=== PATIENT | female | born 1980 | race Hispanic/Latino ===

== ENCOUNTER 2018-01-11 09:51 | Outpatient (CLI) | payer BC | END 2018-01-11 09:52 | disposition home or self-care (01) | LOC: BICRAD 09:51 | PROVIDERS: ATTEND Chiropractor | DX: M54.5 Low back pain (principal); M53.84 Other specified dorsopathies, thoracic region; M53.86 Other specified dorsopathies, lumbar region | CPT/HCPCS: 72110 ==

== ENCOUNTER 2018-05-12 09:00 | Outpatient (CLI) | payer BC | END 2018-05-12 09:01 | disposition home or self-care (01) | LOC: DTY/OP 09:00 | PROVIDERS: ATTEND Surgery | DX: E66.01 Morbid (severe) obesity due to excess calories (principal) | CPT/HCPCS: 97802 ==

== ENCOUNTER 2018-06-25 00:42 | Emergency (ER) | payer BC ==
[2018-06-25 12:36] LABS: Clarity Clear (Clear); Leukocyte Negative (Negative); Specific Gravity, Urine 1.007 (1.002-1.036)
[2018-06-25 12:37] LABS: Bilirubin Small (Negative); Blood, Urine Large (Negative); Glucose, Urine (Dipstick) Negative (Negative); Nitrite Negative (Negative); Protein, Urine (Dipstick) Negative (Neg-Trace); Urobilinogen 0.2 mg/dL (0.2-1.0)
[2018-06-25 12:38] LABS: Hyaline Casts/LPF NONE SEEN LPF (0-3 Hyaline); Squamous Epithelial 0-3 HPF (0-3); WBC/HPF 0-3 HPF (0-3)
[2018-06-25 12:39] LABS: Pregnancy Test - Urine (BHCG) Negative (Negative); Pregu Control Background? CLEAR/WHITE (CLR/WHITE); Pregu Control Bar Appear? YES (CONTROL BAR); Specific Gravity 1.007 (1.002-1.036)
[2018-06-25 15:37] LABS: Anion Gap 15 mmol/L (10-20); BUN (Urea Nitrogen) 6 mg/dL (7.0-18.7); Bilirubin, Total 0.8 mg/dL (0.2-1.2); Calc. Creatinine Clearance 0 mL/min (70-130); Calcium 8.5 mg/dL (7.8-10.44); Carbon Dioxide 20 mmol/L (22-29); Chloride 104 mmol/L (98-107); Estimated GFR-MDRD Greater than 90; Glucose 69 mg/dL (70-105); Potassium 3.4 mmol/L (3.5-5.1); Protein, Total 7.6 g/dL (6.0-8.3); Sodium 136 mmol/L (136-145)
[2018-06-25 15:38] LABS: ALT (SGPT) 89 U/L (8-55); AST (SGOT) 44 U/L (5-34); Alkaline Phosphatase 71 U/L (40-150); Globulin 3.6 g/dL (2.4-3.5)
[2018-06-25 16:40] LABS: %Basophils 0.6 % (0.0-1.0); %Eosinophils 0.7 % (0.0-10.0); %Lymphocytes 30.5 % (21.0-51.0); %Monocytes 6.4 % (0.0-10.0); %Neutrophils 61.8 % (42.0-75.0); Hemoglobin 12.7 g/dL (12.0-16.0); Mean Corpuscular HGB CONC 32.1 g/dL (32.0-36.0); Mean Corpuscular Hemoglobin 28.2 pg (27.0-31.0); Mean Corpuscular Volume 87.9 fL (78.0-98.0); Platelet Count 246 thou/uL (130-400); RBC Distribution Width 12.6 % (11.5-14.5); White Blood Cell (WBC) Count 7.6 thou/uL (4.8-10.8)
[2018-06-25 16:41] LABS: #Eosinphils 0.1 thou/uL (0.0-0.7); #Lymphocytes 2.3 thou/uL (1.20-3.40); #Monocytes 0.5 thou/uL (0.11-0.59); #Neutrophils 4.7 thou/uL (1.40-6.50)
== END 2018-06-25 04:18 | disposition home or self-care (01) ==
LOC: ERS 00:42
DX: R31.9 Hematuria, unspecified (principal); E78.5 Hyperlipidemia, unspecified; E78.00 Pure hypercholesterolemia, unspecified
CPT/HCPCS: 80053; 81003; 81015; 81025; 85025; 99283

== ENCOUNTER 2018-06-26 02:12 | Emergency (ER) | payer BC ==
[2018-06-26 03:02] LABS: Pregnancy Test - Urine (BHCG) Negative (Negative); Pregu Control Background? CLEAR/WHITE (CLR/WHITE); Pregu Control Bar Appear? YES (CONTROL BAR)
[2018-06-26 03:03] LABS: Bilirubin Moderate (Negative); Blood, Urine Trace (Negative); Clarity CLEAR (Clear); Glucose, Urine (Dipstick) Negative (Negative); Leukocyte Negative (Negative); Nitrite Negative (Negative); Protein, Urine (Dipstick) Negative (Neg-Trace); Specific Gravity, Urine 1.015 (1.002-1.036)
[2018-06-26 03:04] LABS: Specific Gravity 1.015 (1.002-1.036)
[2018-06-26 03:05] LABS: Bacteria/HPF None Seen HPF (None Seen); Hyaline Casts/LPF 0-3 HYALINE CAST LPF (0-3 Hyaline); Pathc Cast-AUWi Flag 0.72 (0-2.49); RBC/HPF 0-3 HPF (0-3); Squamous Epithelial 0-3 HPF (0-3); WBC/HPF 0-3 HPF (0-3)
[2018-06-26 03:15] LABS: Renal Epithelial None Seen HPF (0-3); Transitional Epithelial 0-3 HPF (0-3)
== END 2018-06-26 03:40 | disposition home or self-care (01) ==
LOC: ERS 02:12
DX: R31.9 Hematuria, unspecified (principal); E78.5 Hyperlipidemia, unspecified; Z79.899 Other long term (current) drug therapy
CPT/HCPCS: 51701; 81003; 81025; 87086; A4353

== ENCOUNTER 2018-07-19 16:45 | Emergency (ER) | payer BC | END 2018-07-19 16:55 | disposition left against medical advice (07) | LOC: ERS 16:45 | DX: Z53.21 Procedure and treatment not carried out due to patient leaving prior to being seen by health care provider (principal) ==

== ENCOUNTER 2018-07-23 18:42 | Emergency (ER) | payer BC ==
[2018-07-23 19:54] LABS: #Basophils 0.1 thou/uL (0.0-0.2); #Eosinphils 0.1 thou/uL (0.0-0.7); #Lymphocytes 1.9 thou/uL (1.20-3.40); #Monocytes 0.4 thou/uL (0.11-0.59); #Neutrophils 2.8 thou/uL (1.40-6.50); %Basophils 1.7 % (0.0-1.0); %Eosinophils 1.7 % (0.0-10.0); %Lymphocytes 35.9 % (21.0-51.0); %Monocytes 6.9 % (0.0-10.0); %Neutrophils 53.9 % (42.0-75.0); Hemoglobin 14.1 g/dL (12.0-16.0); Mean Corpuscular HGB CONC 33.8 g/dL (32.0-36.0); Mean Corpuscular Hemoglobin 29.5 pg (27.0-31.0); Mean Corpuscular Volume 87.3 fL (78.0-98.0); Mean Platelet Volume 8.1 fL (7.4-10.4); Platelet Count 175 thou/uL (130-400); RBC Distribution Width 13.6 % (11.5-14.5); Red Blood Cell (RBC) Count 4.78 mill/uL (4.20-5.40); White Blood Cell (WBC) Count 5.3 thou/uL (4.8-10.8)
[2018-07-23 20:14] LABS: ALT (SGPT) 58 U/L (8-55); AST (SGOT) 40 U/L (5-34); Albumin 4.2 g/dL (3.5-5.0); Alkaline Phosphatase 61 U/L (40-150); Anion Gap 17 mmol/L (10-20); BUN (Urea Nitrogen) 8 mg/dL (7.0-18.7); Bilirubin, Total 0.5 mg/dL (0.2-1.2); Calc. Creatinine Clearance 0 mL/min (70-130); Calcium 9.2 mg/dL (7.8-10.44); Carbon Dioxide 22 mmol/L (22-29); Chloride 102 mmol/L (98-107); Estimated GFR-MDRD Greater than 90; Globulin 3.7 g/dL (2.4-3.5); Glucose 69 mg/dL (70-105); Potassium 3.6 mmol/L (3.5-5.1); Protein, Total 7.9 g/dL (6.0-8.3); Sodium 137 mmol/L (136-145)
[2018-07-23 20:19] LABS: Bilirubin Negative (Negative); Glucose, Urine (Dipstick) Negative (Negative); Nitrite Negative (Negative); Protein, Urine (Dipstick) Negative (Neg-Trace)
[2018-07-23 21:22] LABS: Clarity Hazy (Clear)
[2018-07-23 21:23] LABS: Leukocyte Small (Negative)
[2018-07-23 21:24] LABS: Bacteria/HPF Rare-Few HPF (None Seen); Blood, Urine Small (Negative); Hyaline Casts/LPF 0-3 HYALINE CAST LPF (0-3 Hyaline)
== END 2018-07-23 21:41 | disposition home or self-care (01) ==
LOC: ERS 18:42
DX: E16.2 Hypoglycemia, unspecified (principal); E78.5 Hyperlipidemia, unspecified; Z79.899 Other long term (current) drug therapy
CPT/HCPCS: 36415; 80053; 81003; 81015; 85025; 99284

== ENCOUNTER 2018-12-21 15:32 | Emergency (ER) | payer BC ==
[2018-12-21 16:43] LABS: Bilirubin Negative (Negative); Blood, Urine Negative (Negative); Clarity CLOUDY (Clear); Glucose, Urine (Dipstick) Negative (Negative); Leukocyte Small (Negative); Nitrite Negative (Negative); Protein, Urine (Dipstick) Trace mg/dL (Neg-Trace); Specific Gravity, Urine 1.036 (1.002-1.036)
[2018-12-21 16:45] LABS: Pregnancy Test - Urine (BHCG) Negative (Negative); Pregu Control Background? CLEAR/WHITE (CLR/WHITE); Pregu Control Bar Appear? YES (CONTROL BAR); Specific Gravity 1.036 (1.002-1.036)
[2018-12-21 16:46] LABS: Bacteria/HPF 1+ HPF (None Seen)
[2018-12-21 16:47] LABS: #Basophils 0.1 thou/uL (0.0-0.2); #Eosinphils 0.1 thou/uL (0.0-0.7); #Monocytes 0.3 thou/uL (0.11-0.59); #Neutrophils 3.2 thou/uL (1.40-6.50); %Basophils 1.5 % (0.0-1.0); %Eosinophils 1.5 % (0.0-10.0); %Lymphocytes 35.7 % (21.0-51.0); %Monocytes 5.6 % (0.0-10.0); %Neutrophils 55.7 % (42.0-75.0); Hemoglobin 12.8 g/dL (12.0-16.0); Mean Corpuscular HGB CONC 34.1 g/dL (32.0-36.0); Mean Corpuscular Hemoglobin 29.5 pg (27.0-31.0); Mean Corpuscular Volume 86.4 fL (78.0-98.0); Platelet Count 283 thou/uL (130-400); RBC Distribution Width 11.7 % (11.5-14.5); Red Blood Cell (RBC) Count 4.34 mill/uL (4.20-5.40); White Blood Cell (WBC) Count 5.7 thou/uL (4.8-10.8)
[2018-12-21 16:52] LABS: Pathc Cast-AUWi Flag 2.72 (0-2.49); Yeast-AUWi Flag 125.9 (0-25.0)
[2018-12-21 17:03] LABS: Hyaline Casts/LPF 0-3 HYALINE CAST LPF (0-3 Hyaline); Other Casts/LPF None Seen LPF (0-3 Hyaline); RBC/HPF 0-3 HPF (0-3)
[2018-12-21 17:04] LABS: Yeast-All Forms None Seen HPF (None Seen)
[2018-12-21 17:07] LABS: ALT (SGPT) 14 U/L (8-55); AST (SGOT) 16 U/L (5-34); Albumin 4.3 g/dL (3.5-5.0); Alkaline Phosphatase 70 U/L (40-150); Anion Gap 12 mmol/L (10-20); BUN (Urea Nitrogen) 13 mg/dL (7.0-18.7); Bilirubin, Total 0.4 mg/dL (0.2-1.2); Calc. Creatinine Clearance 0 mL/min (70-130); Carbon Dioxide 27 mmol/L (22-29); Chloride 104 mmol/L (98-107); Estimated GFR-MDRD Greater than 90; Glucose 80 mg/dL (70-105); Potassium 3.6 mmol/L (3.5-5.1); Protein, Total 7.3 g/dL (6.0-8.3); Sodium 139 mmol/L (136-145)
[2018-12-21] MEDS ORDERED: Metoclopramide HCl 10 MG/2 ML VIAL ONE (18:48)
[2018-12-21] MEDS ORDERED: Meclizine HCl 25 MG TAB ONE (18:48)
--- NOTE | 2018-12-25 15:33 | EKG ---
Test Reason : Blood Pressure : / mmHG Vent. Rate : 063 BPM Atrial Rate : 063 BPM P-R Int : 140 ms QRS Dur : 080 ms QT Int : 386 ms P-R-T Axes : 032 -08 017 degrees QTc Int : 395 ms Normal sinus rhythm Confirmed by CHARLIE ORTIZ ([id number]), editorial clerk TI POTTER ([id number]) on 12/25/2018 3:33:20 PM Referred By: Confirmed By:CHARLIE ORTIZ
== END 2018-12-21 22:02 | disposition home or self-care (01) ==
LOC: ERS 15:32
DX: H81.399 Other peripheral vertigo, unspecified ear (principal); E78.5 Hyperlipidemia, unspecified
CPT/HCPCS: 36415; 36416; 80053; 81003; 81015; 81025; 84484; 85025; 93005; 96365; J2765

== ENCOUNTER 2019-06-07 17:41 | Emergency (ER) | payer BC ==
[2019-06-07 18:19] LABS: #Eosinphils 0.1 thou/uL (0.0-0.7); #Lymphocytes 2.5 thou/uL (1.20-3.40); #Monocytes 0.4 thou/uL (0.11-0.59); #Neutrophils 3.6 thou/uL (1.40-6.50); %Basophils 0.5 % (0.0-1.0); %Eosinophils 1.3 % (0.0-10.0); %Lymphocytes 37.4 % (21.0-51.0); %Monocytes 5.9 % (0.0-10.0); %Neutrophils 54.9 % (42.0-75.0); Hemoglobin 13.6 g/dL (12.0-16.0); Mean Corpuscular HGB CONC 34.4 g/dL (32.0-36.0); Mean Corpuscular Hemoglobin 29.7 pg (27.0-31.0); Mean Corpuscular Volume 86.2 fL (78.0-98.0); Mean Platelet Volume 7.1 fL (7.4-10.4); Platelet Count 246 thou/uL (130-400); RBC Distribution Width 11.9 % (11.5-14.5); Red Blood Cell (RBC) Count 4.58 mill/uL (4.20-5.40); White Blood Cell (WBC) Count 6.6 thou/uL (4.8-10.8)
[2019-06-07 18:28] LABS: BHCG - Serum Negative (NEGATIVE); Pregs Control Background? CLEAR/WHITE (CLR/WHITE); Pregs Control Bar Appear? YES (CONTROL BAR)
[2019-06-07] MEDS ORDERED: Cyanocobalamin 1000 MCG/ML VIAL IM SCH (18:30)
[2019-06-07] MEDS ORDERED: Multivitamins, Adult 10 ML, Thiamine HCl 100 MG, Folic Acid 1 MG in Dextrose 5 %-0.45 %... IV ONE (18:30)
[2019-06-07 18:38] LABS: ALT (SGPT) 14 U/L (8-55); AST (SGOT) 17 U/L (5-34); Albumin 4.8 g/dL (3.5-5.0); Alkaline Phosphatase 62 U/L (40-110); Anion Gap 13 mmol/L (10-20); BUN (Urea Nitrogen) 13 mg/dL (7.0-18.7); Bilirubin, Total 0.4 mg/dL (0.2-1.2); Calc. Creatinine Clearance 0 mL/min (70-130); Calcium 9.7 mg/dL (7.8-10.44); Carbon Dioxide 25 mmol/L (22-29); Chloride 102 mmol/L (98-107); Estimated GFR-MDRD Greater than 90; Globulin 3.7 g/dL (2.4-3.5); Glucose 108 mg/dL (70-105); Potassium 3.4 mmol/L (3.5-5.1); Protein, Total 8.5 g/dL (6.0-8.3); Sodium 137 mmol/L (136-145)
[2019-06-07 19:01] LABS: Vitamin B12 518 pg/mL (211-911)
[2019-06-07] MEDS ORDERED: Potassium Chloride 20 MEQ TAB ONE (19:07)
[2019-06-07 19:47] LABS: Bilirubin Negative (Negative); Blood, Urine Negative (Negative); Clarity Clear (Clear); Glucose, Urine (Dipstick) Normal (Negative); Leukocyte Negative Leu/uL (Negative); Nitrite Negative (Negative); Protein, Urine (Dipstick) 10 mg/dL (Neg-Trace)
--- NOTE | 2019-06-07 20:00 | ULT ---
RIGHT LOWER EXTREMITY VENOUS ULTRASOUND: 06/07/19 HISTORY: Right lower extremity pain. TECHNIQUE: Multiplanar martinez scale and color Doppler images were obtained in a right lower extremity venous ultra sound. Spectral analysis of the Doppler waveforms were performed. FINDINGS: The right common femoral vein, profunda femoral vein, superficial femoral vein, popliteal vein, are n ormal in appearance without visible thrombus. These vessels demonstrate normal compression, flow and augmentation. The posterior tibial vein and greater saphenous vein are also patent. IMPRESSION: No evidence of DVT. POS: [facility]
== END 2019-06-07 19:18 | disposition home or self-care (01) ==
LOC: ERS 17:41
DX: M54.31 Sciatica, right side (principal); R53.83 Other fatigue; E78.5 Hyperlipidemia, unspecified; E78.00 Pure hypercholesterolemia, unspecified
CPT/HCPCS: 80053; 81003; 82607; 84703; 85025; 96365; 96366; 96372; J3411; J3420; J7042

== ENCOUNTER 2019-07-29 12:01 | Outpatient (CLI) | payer BC ==
--- NOTE | 2019-07-29 14:00 | RAD ---
FIVE VIEWS LUMBAR SPINE: HISTORY: Low back pain over 4 months. The patient also complains of right hip pain. COMPARISON: None available. FINDINGS: There are 5 byj-gig-pmpoegf lumbar-type vertebral bodies. Vertebral body heights are within normal l imits. There is mild narrowing of the L5-S1 intervertebral disk space. No fracture or subluxation i s seen involving the lumbar spine. Surgical overlie the upper quadrants bilaterally. IMPRESSION: Mild degenerative changes at the lumbosacral junction. No fracture or subluxation is seen involving the lumbar spine. POS: [facility]
== END 2019-07-29 12:02 | disposition home or self-care (01) ==
LOC: BICRAD 12:01
PROVIDERS: ATTEND Chiropractor
DX: M54.5 Low back pain (principal); M53.86 Other specified dorsopathies, lumbar region; M53.84 Other specified dorsopathies, thoracic region; M79.10 Myalgia, unspecified site; M47.816 Spondylosis without myelopathy or radiculopathy, lumbar region
CPT/HCPCS: 72110

== ENCOUNTER 2020-05-22 20:45 | Observation (INO) | payer BC, OTHER ==
[2020-05-22] MEDS ORDERED: Meclizine HCl 25 MG TAB ONE (21:33)
[2020-05-22 21:38] LABS: #Eosinphils 0.1 thou/uL (0.0-0.7); #Lymphocytes 2.1 thou/uL (1.20-3.40); #Monocytes 0.4 thou/uL (0.11-0.59); #Neutrophils 3.3 thou/uL (1.40-6.50); %Basophils 0.7 % (0.0-1.0); %Lymphocytes 35.6 % (21.0-51.0); %Neutrophils 54.8 % (42.0-75.0); Hemoglobin 9.9 g/dL (12.0-16.0); Mean Corpuscular HGB CONC 33.1 g/dL (32.0-36.0); Mean Corpuscular Hemoglobin 24.8 pg (27.0-31.0); Mean Corpuscular Volume 74.9 fL (78.0-98.0); Mean Platelet Volume 7.8 fL (7.4-10.4); Platelet Count 315 thou/uL (130-400); Red Blood Cell (RBC) Count 3.98 mill/uL (4.20-5.40)
[2020-05-22 21:52] LABS: Bacteria/HPF None Seen HPF (None Seen); Bilirubin Negative (Negative); Blood, Urine Negative (Negative); Clarity Clear (Clear); Glucose, Urine (Dipstick) Normal (Negative); Ketone, Urine Negative (Negative); Leukocyte 25 Leu/uL (Negative); Mucous/LPF Rare LPF (<2+); Nitrite Negative (Negative); Protein, Urine (Dipstick) 10 mg/dL (Neg-Trace); RBC/HPF 0-3 HPF (0-3); Specific Gravity, Urine 1.032 (1.002-1.036); Squamous Epithelial 0-3 HPF (0-3); Urobilinogen Normal mg/dL (Less than 2); WBC/HPF 0-3 HPF (0-3); pH, Urine 5.5 (5.0-9.0)
[2020-05-22 21:53] LABS: Pregnancy Test - Urine (BHCG) Negative (Negative); Pregu Control Background? CLEAR/WHITE (CLR/WHITE); Pregu Control Bar Appear? YES (CONTROL BAR); Specific Gravity 1.032 (1.002-1.036)
[2020-05-22 21:58] LABS: ALT (SGPT) 8 U/L (8-55); AST (SGOT) 15 U/L (5-34); Albumin 4.1 g/dL (3.5-5.0); Alkaline Phosphatase 54 U/L (40-110); Anion Gap 15 mmol/L (10-20); BUN (Urea Nitrogen) 11 mg/dL (7.0-18.7); Bilirubin, Total 0.3 mg/dL (0.2-1.2); Calc. Creatinine Clearance 0 mL/min (70-130); Calcium 8.4 mg/dL (7.8-10.44); Carbon Dioxide 22 mmol/L (22-29); Chloride 105 mmol/L (98-107); Estimated GFR-MDRD Greater than 90; Globulin 3.1 g/dL (2.4-3.5); Glucose 88 mg/dL (70-105); Potassium 3.7 mmol/L (3.5-5.1); Protein, Total 7.2 g/dL (6.0-8.3); Sodium 138 mmol/L (136-145)
[2020-05-22] MEDS ORDERED: Pantoprazole 40 MG VIAL ONE (22:44)
[2020-05-23] MEDS ORDERED: Lactated Ringer's 1,000 ML IV SCH (00:45)
[2020-05-23 00:53] VITALS: BMI 27.3
[2020-05-23] MEDS ORDERED: Acetaminophen 325 MG TAB PO PRN (05:27)
[2020-05-23] MEDS ORDERED: hydrALAZINE 20 MG/ML VIAL SLOW IVP PRN (05:27)
[2020-05-23] MEDS ORDERED: Promethazine HCl 12.5 MG in Sodium Chloride 0.9% 50 ML IVPB PRN (05:27)
[2020-05-23] MEDS ORDERED: Ondansetron PF 4 MG/2 ML Vial IVP PRN (05:27)
[2020-05-23] MEDS ORDERED: Labetalol HCl 100 MG/20 ML VIAL SLOW IVP PRN (05:27)
[2020-05-23] MEDS ORDERED: Guaifenesin DM 100-10/5 ML UDCUP PO PRN (05:27)
[2020-05-23] MEDS ORDERED: cloNIDine 0.1 MG TAB PO PRN (05:27)
[2020-05-23] MEDS ORDERED: Electrolyte Replacement Protoc 1 EACH EACH FS SCH (05:30)
--- NOTE | 2020-05-23 05:34 | PDOC.HHP ---
Hospitalist HPI - History of Present Illness Dizziness History of Present Illness: Patient is a 40 year old female with PMH gastric sleeve who presents to ED for several days of dizziness. She reports about a week ago, she started being dizzy , she reports previous episodes of this that she ascribes to dehydration. Her symptoms somewhat sound like vertigo or orthostasis. She has a gastric sleeve and has had issues with hypokalemia in the past. she denies fevers, chills, nausea, vomiting, diarrhea. No visual changes, headaches, seizures. In ED, BP low (90s/60s at lowest). hemoglobin found to be 9, patient denies melena/ hematochezia/hematemesis. Menstrual period last month was normal, patient denies signficantly large volume menses. Given history of gastric sleeve, ED physician concerned about things such as ulcer or slow bleeding. Patinet admitted for GI consult in AM. Hospitalist ROS - Review of Systems Constitutional: reports: weakness, other (dizziness). denies: fever, chills, sweats, malaise Eyes: denies: pain, vision change, conjunctivae inflammation, eyelid inflammation, redness, other ENT: denies: ear pain, ear discharge, nose pain, nose discharge, nose congestion , mouth pain, mouth swelling, throat pain, throat swelling, other Respiratory: denies: cough, dry, shortness of breath, hemoptysis, SOB with excertion, pleuritic pain, sputum, wheezing, other Cardiovascular: denies: chest pain, palpitations, orthopnea, paroxysmal noc. dyspnea, edema, light headedness, other Gastrointestinal: denies: nausea, vomiting, abdominal pain, diarrhea, constipation, melena, hematochezia, other Genitourinary: denies: dysuria, frequency, incontinence, hematuria, retention, other Musculoskeletal: denies: neck pain, shoulder pain, arm pain, back pain, hand pain, leg pain, foot pain, other Skin: denies: rash, lesions, jayde, bruising, other Neurological: denies: weakness, numbness, incoordination, change in speech, confusion, seizures, other All other systems reviewed; all pertinent +/- noted in HPI/Subj - Medication Medications: reviewed, none i am aware of Hospitalist History - Past Medical History Other Medical History: HLD - Past Surgical History Other Surgical History: gastric sleeve - Family History Family History: reports: no pertinent history - Social History Alcohol: reports: None Drugs: reports: none - Exam General Appearance: NAD, awake alert Eye: PERRL, anicteric sclera ENT: normocephalic atraumatic, no oropharyngeal lesions, moist mucosa Neck: supple, symmetric, no JVD, no thyromegaly, no lymphadenopathy, no carotid bruit Heart: RRR, no murmur, no gallops, no rubs, normal peripheral pulses Respiratory: CTAB, no wheezes, no rales, no ronchi, normal chest expansion, no tachypnea, normal percussion Gastrointestinal: soft, non-tender, non-distended, normal bowel sounds, no palpable masses, no hepatomegaly, no splenomegaly, no bruit Extremities: no cyanosis, no clubbing, no edema Skin: normal turgor, no lesions, no rashes Neurological: cranial nerve grossly intact, normal sensation to touch, no weakness, no focal deficits, no new deficit Musculoskeletal: normal tone, normal strength, no muscle wasting Psychiatric: normal affect, normal behavior, A&O x 3 Hospitalist Results - Labs Result Diagrams: 05/22/20 21:10 05/22/20 21:10 Lab results: WBC 6.0 thou/uL (4.8-10.8) 05/22/20 21:10 Hgb 9.9 g/dL (12.0-16.0) L 05/22/20 21:10 Hct 29.8 % (36.0-47.0) L 05/22/20 21:10 MCV 74.9 fL (78.0-98.0) L 05/22/20 21:10 Plt Count 315 thou/uL (130-400) 05/22/20 21:10 Neutrophils % 54.8 % (42.0-75.0) 05/22/20 21:10 Sodium 138 mmol/L (136-145) 05/22/20 21:10 Potassium 3.7 mmol/L (3.5-5.1) 05/22/20 21:10 Chloride 105 mmol/L (98-107) 05/22/20 21:10 Carbon Dioxide 22 mmol/L (22-29) 05/22/20 21:10 BUN 11 mg/dL (7.0-18.7) 05/22/20 21:10 Creatinine 0.61 mg/dL (0.6-1.1) 05/22/20 21:10 Glucose 88 mg/dL (70-105) 05/22/20 21:10 Calcium 8.4 mg/dL (7.8-10.44) 05/22/20 21:10 Total Bilirubin 0.3 mg/dL (0.2-1.2) 05/22/20 21:10 AST 15 U/L (5-34) 05/22/20 21:10 ALT 8 U/L (8-55) 05/22/20 21:10 Alkaline Phosphatase 54 U/L (40-110) 05/22/20 21:10 Serum Total Protein 7.2 g/dL (6.0-8.3) 05/22/20 21:10 Albumin 4.1 g/dL (3.5-5.0) 05/22/20 21:10 Urine Ketones Negative mg/dL (Negative) 05/22/20 21:17 Urine Blood Negative (Negative) 05/22/20 21:17 Urine Nitrite Negative (Negative) 05/22/20 21:17 Ur Leukocyte Esterase 25 Abdulkadir/uL (Negative) A 05/22/20 21:17 Urine RBC 0-3 HPF (0-3) 05/22/20 21:17 Urine WBC 0-3 HPF (0-3) 05/22/20 21:17 Ur Squamous Epith Cells 0-3 HPF (0-3) 05/22/20 21:17 Urine Bacteria None Seen HPF (None Seen) 05/22/20 21:17 Additional comment: VITAL SIGNS ThuMay 23, 2020 00:21 MACEY Jackson, Stephanie BP: 92/62 MAP: 72 Pulse: 69 Time: 05/23/2020 00:21. Hospitalist H&P A/P - Plan Plan: Patient is a 40 year old female with PMH gastric sleeve who presents to ED for several days of dizziness. # anemia # dizziness # history of gastric sleeve - admit to floor - IVF - consult GI - PPI - NPO DVT ppx - SCD GI ppx
[2020-05-23] MEDS: Sodium Chloride 0.9% 1,000 ML IV SCH ×2 (06:12→15:43)
[2020-05-23 08:56] LABS: Hemoglobin 9.3 g/dL (12.0-16.0)
[2020-05-23] MEDS ORDERED: Pantoprazole 40 MG VIAL IVP SCH (09:45)
[2020-05-23 13:04] LABS: SARS-CoV-2 MS2 Positive; SARS-CoV-2 N Gene Negative; SARS-CoV-2 S Gene Negative; SARS-CoV-2 by NAA Not Detected (NotDetected); SARS-CoV-2 orf1ab Negative
[2020-05-23] MEDS ORDERED: GoLYTELY 4,000 ml Bottle PO SCH (18:45)
[2020-05-23] MEDS: Pantoprazole 40 MG VIAL IVP SCH (19:50)
--- NOTE | 2020-05-23 22:04 | CON ---
DATE OF CONSULTATION: 05/23/2020 REQUESTING PHYSICIAN: Dr. Henao. REASON FOR CONSULTATION: Anemia. HISTORY OF PRESENT ILLNESS: Radha Espinoza is a very pleasant 40-year-old woman, who was admitted to the hospital late last night with complaints of progressive dizziness and weakness over the past week and was found to have significant new microcytic anemia. She has a past history of hyperlipidemia. She had an EGD in 2014 showing only mild chronic gastritis. She had a gastric sleeve operation in June 2018 in [place], which was evidently uncomplicated. She had great weight loss after this going from 250 down to 140 pounds and weight has been stable recently, but she says that for about the past week, she has noticed progressive dizziness and weakness, as well as tiredness. Upon presentation in the ER, her systolic blood pressure was 90 with diastolic of 60 and hemoglobin was found to be 9.9. Repeat hemoglobin value was 9.3. This is a microcytic anemia with MCV 74.9. She has not received any blood transfusion, but has remained hemodynamically stable through all this. She denies any overt bleeding from anywhere. She has normal menses, which last about seven days, but are not too heavy, every month. She denies any epistaxis, gross hematuria, hematemesis, melena, or hematochezia. Bowel movements are normal and regular in appearance. She does not have any abdominal pain. She has been having some heartburn over the past few weeks, for which she will take an qnjd-tpc-dnkwecd antacid as needed, but no other gastrointestinal symptoms. She has been n.p.o. so far today. PAST MEDICAL HISTORY: Gastric sleeve operation in June 2018 in [place] and hyperlipidemia. ALLERGIES: NO KNOWN DRUG ALLERGIES. OUTPATIENT MEDICATIONS: Bvwj-jau-krwiawx antacid p.r.n. SOCIAL HISTORY: No alcohol or drug use. FAMILY HISTORY: Negative for GI malignancy. REVIEW OF SYSTEMS: Full review of systems including constitutional, head, eyes, ears, nose, throat, GI, , cardiovascular, respiratory, musculoskeletal, and neurologic systems are negative except as noted in the HPI. PHYSICAL EXAMINATION: VITAL SIGNS: Temperature 98.3, blood pressure 107/71, pulse 70, and 99% oxygen saturation on room air. GENERAL: A 40-year-old woman lying in bed comfortably, in no distress. SKIN: She is a bit pale. No jaundice. No rashes were palpable. EYES: No scleral icterus. Extraocular movements intact. ENT: Mucous membranes moist. No oral lesions. LYMPH: No submandibular or supraclavicular lymphadenopathy. THYROID: Nontender to palpation. HEART: Regular rate and rhythm. LUNGS: Clear to auscultation bilaterally. ABDOMEN: Bowel sounds present. Soft and nontender to palpation throughout. EXTREMITIES: No peripheral edema. VESSELS: Radial pulses 2+ bilaterally. NEUROLOGIC: Cranial nerves 2 through 12 intact bilaterally. No focal deficits. LABORATORY STUDIES: Hemoglobin 9.9, down to 9.3; hemoglobin was 13.6 one year ago in May 2019. MCV is low at 74.9, WBC is 6, platelets 315. Sodium 138, potassium 3.7, BUN 11, creatinine 0.61, glucose 88. LFTs are all normal with total bilirubin 0.3, alkaline phosphatase 54, AST 15, ALT 8, albumin 4.1. COVID PCR is negative. Urine test negative. Urinalysis shows 0-3 wbc's. ASSESSMENT AND PLAN: 1. Symptomatic microcytic anemia, new, likely representing iron deficiency anemia. 2. Heartburn. 3. History of gastric sleeve operation in June 2018 in [place]. The patient has a new symptomatic anemia with a drop of hemoglobin over four points over the past year, in the absence of any overt bleeding and reportedly normal menses. Her only gastrointestinal symptom is heartburn. We did discuss the possibility of an occult gastrointestinal bleeding lesion. I think it would be reasonable to pursue endoscopic investigation. We will plan for diagnostic EGD and colonoscopy tomorrow, with plan for duodenal biopsies. We will obtain iron studies, vitamin B12, and folic acid levels with morning labs. In the meantime, I agree with PPI therapy empirically. Thank you for the consultation. Further recommendations following endoscopy tomorrow. Please call anytime with questions or concerns. Job ID: [id number]
[2020-05-24] MEDS: Sodium Chloride 0.9% 1,000 ML IV SCH ×3 (01:48→20:30)
[2020-05-24 07:11] LABS: #Eosinphils 0.1 thou/uL (0.0-0.7); #Lymphocytes 1.6 thou/uL (1.20-3.40); #Monocytes 0.3 thou/uL (0.11-0.59); #Neutrophils 3.4 thou/uL (1.40-6.50); %Basophils 0.6 % (0.0-1.0); %Eosinophils 1.1 % (0.0-10.0); %Lymphocytes 29.4 % (21.0-51.0); %Monocytes 5.9 % (0.0-10.0); Hemoglobin 9.3 g/dL (12.0-16.0); Mean Corpuscular HGB CONC 31.9 g/dL (32.0-36.0); Mean Corpuscular Hemoglobin 23.6 pg (27.0-31.0); Mean Corpuscular Volume 73.9 fL (78.0-98.0); Mean Platelet Volume 7.6 fL (7.4-10.4); Platelet Count 274 thou/uL (130-400); Red Blood Cell (RBC) Count 3.96 mill/uL (4.20-5.40); White Blood Cell (WBC) Count 5.4 thou/uL (4.8-10.8)
[2020-05-24 07:13] LABS: Prothrombin Time 13.6 sec (12.0-14.7)
[2020-05-24 07:35] LABS: Iron 30 ug/dL (50-170); Iron Binding Capacity, Total 540 mcg/dL (265-497)
[2020-05-24 07:58] LABS: Ferritin 3.15 ng/mL (10-291)
[2020-05-24] MEDS ORDERED: Fentanyl 100 MCG/2 ML VIAL ONE (09:48)
[2020-05-24] MEDS ORDERED: PROPOFOL 200 MG/20 ML VIAL ONE (10:16)
[2020-05-24] MEDS ORDERED: Promethazine HCl 25 MG/ML VIAL IM PRN (11:30)
[2020-05-24] MEDS ORDERED: Ondansetron HCl/PF 4 MG/2 ML Vial IVP PRN (11:30)
[2020-05-24] MEDS ORDERED: Iron, Sodium Ferric Gluconate 250 MG in Sodium Chloride 0.9% 100 ML IVPB SCH (11:30)
[2020-05-24] MEDS: Pantoprazole 40 MG VIAL IVP SCH (14:42)
--- NOTE | 2020-05-24 17:59 | PDOC.HOSPP ---
- Subjective Encounter Date: 05/24/20 Subjective: Status post EGD. The patient had an allergic reaction after receiving transfusion of iron today. - Objective Vital Signs & Weight: Vital Signs (12 hours) Temp Pulse Resp BP BP Pulse Ox 05/24/20 12:00 97.8 F 58 L 18 106/67 98 05/24/20 08:00 98.4 F 60 18 98/63 98 Weight Weight 145 lb I&O: 05/23/20 05/24/20 05/25/20 06:59 06:59 06:59 Intake Total 1260 4250 Balance 1260 4250 Result Diagrams: 05/24/20 06:52 05/22/20 21:10 Hospitalist ROS - Medication Medications: Active Medications Generic Name Dose Route Start Last Admin Trade Name Freq PRN Reason Stop Dose Admin Acetaminophen 650 mg 05/23/20 05:27 05/24/20 16:11 Tylenol PO 650 mg Q4H PRN Administration Headache/Fever/Mild Pain (1-3) Ondansetron HCl 4 mg 05/23/20 05:27 05/24/20 02:11 Zofran IVP 4 mg Q6H PRN Administration Nausea/Vomiting use 1st Hosp A/P (1) Anemia due to acute blood loss Code(s): D62 - ACUTE POSTHEMORRHAGIC ANEMIA Status: Acute (2) Anaphylactic reaction Code(s): T78.2XXA - ANAPHYLACTIC SHOCK, UNSPECIFIED, INITIAL ENCOUNTER Status : Acute - Plan Status post EGD. Pending the final report. Continue Protonix. The patient developed skin rash and diarrhea after receiving iron. We will administer Benadryl and monitor the patient overnight.
[2020-05-24] MEDS ORDERED: diphenhydrAMINE 50 MG/ML VIAL IVP SCH (18:00)
[2020-05-24] MEDS ORDERED: methylPREDNISolone Sod Succ 40 MG VIAL IVP SCH (18:15)
[2020-05-25] MEDS: Sodium Chloride 0.9% 1,000 ML IV SCH ×2 (05:30→08:08)
[2020-05-25] MEDS ORDERED: Sodium Chloride 0.9% 500 ML IV SCH (09:00)
--- NOTE | 2020-05-25 10:43 | OP ---
DATE OF PROCEDURE: 05/24/2020 PROCEDURES PERFORMED: Esophagogastroduodenoscopy with biopsy and colonoscopy. PREOPERATIVE DIAGNOSIS: 1. Severe anemia, microcytic with iron deficiency. 2. Prior history of gastric sleeve. POSTPROCEDURE DIAGNOSES: 1. Normal gastric sleeve anatomy of the stomach. 2. Normal esophagus. 3. Normal duodenum, small, biopsies taken to rule out celiac, although small bowel did look normal. 4. Normal colonoscopy. RECOMMENDATIONS: 1. Iron supplementation daily, consider giving IV iron before discharge. 2. We will follow up biopsies in the outpatient setting. 3. Recommend the patient to follow up with her bariatric surgeon and would discontinue iron and multivitamin supplementation. 4. For intermittent heartburn, she can take PPI or antacid. ANESTHESIA: TIVA. DESCRIPTION OF OPERATION: After the patient was informed of the risks, benefits, and possible complications of endoscopy, including perforation, reaction to medication, aspiration, informed consent was obtained. The patient was brought to endoscopy suite, where she was sedated in a gradual fashion. Once she was comfortable, a bite block was placed inside the orifice. The endoscope was advanced through the esophagus, stomach, and second and third portions of the duodenum and slowly removed. There was good visualization of the mucosa, there was no mass, lesions, or AV malformations. There was normal gastric sleeve anatomy without any ulcers or erosions. Biopsies were taken from the second portion of the duodenum submitted to cytology to rule out celiac. The scope was removed. The patient was returned to the room and rectal examination was performed. The endoscope was inserted into the anal canal through the colon to the cecum, which was identified by ileocecal valve and the appendiceal orifice. Retroflexed views in the rectum were normal. The endoscope was slowly removed. There was good visualization of the mucosa and the entire colon. Retroflexed views in the rectum were normal. The scope was removed and the patient tolerated the procedure well and there were no complications. We will sign off at this point in time. If I can be of any further assistance in the patient's care, please do not hesitate to contact me. Job ID: [id number]
[2020-05-25 11:24] VITALS: TEMP 98.6
[2020-05-25 12:50] VITALS: BP 97/51
--- NOTE | 2020-05-26 16:36 | EKG ---
Test Reason : Blood Pressure : / mmHG Vent. Rate : 067 BPM Atrial Rate : 067 BPM P-R Int : 118 ms QRS Dur : 082 ms QT Int : 382 ms P-R-T Axes : 002 -04 021 degrees QTc Int : 403 ms Normal sinus rhythm Normal ECG Confirmed by FRANCIS MITCHELL ([id number]), associate entertainment editor FATIMAH PURVIS ([id number] on 05/26/2020 4:35:47 PM Referred By: Confirmed By:FRANCIS MITCHELL
== END 2020-05-25 14:10 | disposition home or self-care (01) ==
LOC: ERS 20:45 → T4-A 23:09 → INTOOBSV 23:09
PROVIDERS: ADMIT Internal Medicine; ATTEND Internal Medicine
PROC: 0DJD8ZZ Inspection of Lower Intestinal Tract, Via Natural or Artificial Opening Endoscopic (ICD-10-PCS; principal; 2020-05-24)
PROC: 0DB98ZX Excision of Duodenum, Via Natural or Artificial Opening Endoscopic, Diagnostic (ICD-10-PCS; 2020-05-24)
PROC: 0DB88ZX Excision of Small Intestine, Via Natural or Artificial Opening Endoscopic, Diagnostic (ICD-10-PCS; 2020-05-24)
DX: D62 Acute posthemorrhagic anemia (principal); T78.2XXA Anaphylactic shock, unspecified, initial encounter; E78.5 Hyperlipidemia, unspecified; Z98.84 Bariatric surgery status; Z20.828 Contact with and (suspected) exposure to other viral communicable diseases
CPT/HCPCS: 36415; 36416; 80053; 81003; 81015; 81025; 82607; 82728; 82746; 83540; 83550; 85014; 85018; 85025; 85610; 87635; 88305; 93005; 94760; 96361; 96365; 96366; 96374; 96375; 96376; C9113; G0378; J1200; J2405; J2704; J2916; J2920; J3010; J3490; U0003

== ENCOUNTER 2020-12-12 20:40 | Emergency (ER) | payer BC ==
[2020-12-12 21:19] LABS: #Basophils 0.1 thou/uL (0.0-0.2); #Lymphocytes 0.6 thou/uL (1.20-3.40); #Monocytes 0.2 thou/uL (0.11-0.59); #Neutrophils 7.7 thou/uL (1.40-6.50); %Basophils 0.9 % (0.0-1.0); %Eosinophils 0.1 % (0.0-10.0); %Lymphocytes 7.2 % (21.0-51.0); %Monocytes 2.4 % (0.0-10.0); %Neutrophils 89.4 % (42.0-75.0); Hemoglobin 11.4 g/dL (12.0-16.0); Mean Corpuscular HGB CONC 33.4 g/dL (32.0-36.0); Mean Corpuscular Hemoglobin 26.8 pg (27.0-31.0); Mean Corpuscular Volume 80.2 fL (78.0-98.0); Mean Platelet Volume 7.6 fL (7.4-10.4); Platelet Count 213 thou/uL (130-400); RBC Distribution Width 11.5 % (11.5-14.5); Red Blood Cell (RBC) Count 4.26 mill/uL (4.20-5.40); White Blood Cell (WBC) Count 8.6 thou/uL (4.8-10.8)
[2020-12-12 21:37] LABS: ALT (SGPT) 13 U/L (8-55); AST (SGOT) 14 U/L (5-34); Albumin 4.2 g/dL (3.5-5.0); Alkaline Phosphatase 69 U/L (40-110); Anion Gap 11 mmol/L (10-20); BUN (Urea Nitrogen) 17 mg/dL (7.0-18.7); Bilirubin, Total 0.2 mg/dL (0.2-1.2); Calc. Creatinine Clearance 0 mL/min (70-130); Calcium 8.5 mg/dL (7.8-10.44); Carbon Dioxide 28 mmol/L (22-29); Chloride 105 mmol/L (98-107); Globulin 3.2 g/dL (2.4-3.5); Glucose 104 mg/dL (70-105); Potassium 3.9 mmol/L (3.5-5.1); Protein, Total 7.4 g/dL (6.0-8.3); Sodium 140 mmol/L (136-145)
[2020-12-12] MEDS ORDERED: Ketorolac Tromethamine 30 MG/ML VIAL ONE (22:08)
== END 2020-12-12 23:37 | disposition home or self-care (01) ==
LOC: ERS 20:40
DX: U07.1 COVID-19 (principal); E78.00 Pure hypercholesterolemia, unspecified; Z79.899 Other long term (current) drug therapy
CPT/HCPCS: 36415; 71045; 80053; 84484; 85025; 93005; J1885

== ENCOUNTER 2021-04-19 13:35 | Outpatient (CLI) | payer BC | END 2021-04-19 13:36 | disposition home or self-care (01) | LOC: BICULT 13:35 | PROVIDERS: ATTEND Physician Assistant | DX: R10.2 Pelvic and perineal pain (principal) | CPT/HCPCS: 76856; 93976 ==

== ENCOUNTER 2021-07-18 18:26 | Observation (INO) | payer BC ==
[2021-07-18 19:28] LABS: #Basophils 0.1 thou/uL (0.0-0.2); #Eosinphils 0.1 thou/uL (0.0-0.7); #Lymphocytes 2.1 thou/uL (1.20-3.40); #Monocytes 0.4 thou/uL (0.11-0.59); #Neutrophils 3.1 thou/uL (1.40-6.50); %Eosinophils 1.1 % (0.0-10.0); %Lymphocytes 36.9 % (21.0-51.0); Hemoglobin 13.9 g/dL (12.0-16.0); Mean Corpuscular HGB CONC 35.3 g/dL (32.0-36.0); Mean Corpuscular Hemoglobin 31.3 pg (27.0-31.0); Mean Corpuscular Volume 88.6 fL (78.0-98.0); Mean Platelet Volume 7.9 fL (7.4-10.4); Platelet Count 226 thou/uL (130-400); RBC Distribution Width 16.3 % (11.5-14.5); Red Blood Cell (RBC) Count 4.44 mill/uL (4.20-5.40); White Blood Cell (WBC) Count 5.7 thou/uL (4.8-10.8)
[2021-07-18 19:39] LABS: BHCG - Serum Negative (NEGATIVE); Pregs Control Background? CLEAR/WHITE (CLR/WHITE); Pregs Control Bar Appear? YES (CONTROL BAR)
[2021-07-18 19:46] LABS: ALT (SGPT) 13 U/L (8-55); AST (SGOT) 18 U/L (5-34); Albumin 4.6 g/dL (3.5-5.0); Alkaline Phosphatase 54 U/L (40-110); Anion Gap 15 mmol/L (10-20); BUN (Urea Nitrogen) 8 mg/dL (7.0-18.7); Bilirubin, Total 0.3 mg/dL (0.2-1.2); Calc. Creatinine Clearance 0 mL/min (70-130); Calcium 9.6 mg/dL (7.8-10.44); Carbon Dioxide 24 mmol/L (22-29); Chloride 103 mmol/L (98-107); Globulin 3.7 g/dL (2.4-3.5); Glucose 88 mg/dL (70-105); Potassium 3.9 mmol/L (3.5-5.1); Protein, Total 8.3 g/dL (6.0-8.3); Sodium 138 mmol/L (136-145)
[2021-07-18 22:49] LABS: Troponin I Less than 0.010 ng/mL (< 0.028)
[2021-07-18] MEDS ORDERED: Ondansetron ODT 4 MG TAB PO PRN (23:08)
[2021-07-18] MEDS ORDERED: Senokot S 8.6-50 MG TAB PO PRN (23:08)
[2021-07-18] MEDS ORDERED: Acetaminophen 325 MG TAB PO PRN (23:08)
[2021-07-18] MEDS ORDERED: Ondansetron PF 4 MG/2 ML Vial IVP PRN (23:08)
[2021-07-18] MEDS ORDERED: Nitroglycerin 0.4 MG TAB (25 Tab Bottle) SL PRN (23:11)
[2021-07-19] MEDS ORDERED: Aspirin 325 mg Enteric Coated Tablet PO SCH (01:15)
[2021-07-19 02:03] LABS: Troponin I Less than 0.010 ng/mL (< 0.028)
[2021-07-19 05:00] VITALS: BMI 25.7
[2021-07-19 05:50] LABS: #Eosinphils 0.2 thou/uL (0.0-0.7); #Lymphocytes 1.9 thou/uL (1.20-3.40); #Monocytes 0.3 thou/uL (0.11-0.59); #Neutrophils 2.5 thou/uL (1.40-6.50); %Basophils 0.2 % (0.0-1.0); %Eosinophils 3.5 % (0.0-10.0); %Lymphocytes 39.2 % (21.0-51.0); %Monocytes 5.2 % (0.0-10.0); %Neutrophils 51.9 % (42.0-75.0); Hemoglobin 13.5 g/dL (12.0-16.0); Mean Corpuscular HGB CONC 35.3 g/dL (32.0-36.0); Mean Corpuscular Hemoglobin 31.1 pg (27.0-31.0); Mean Corpuscular Volume 88.1 fL (78.0-98.0); Mean Platelet Volume 8.1 fL (7.4-10.4); Platelet Count 210 thou/uL (130-400); RBC Distribution Width 16.2 % (11.5-14.5); Red Blood Cell (RBC) Count 4.33 mill/uL (4.20-5.40); White Blood Cell (WBC) Count 4.8 thou/uL (4.8-10.8)
[2021-07-19 06:00] LABS: Anion Gap 13 mmol/L (10-20); BUN (Urea Nitrogen) 8 mg/dL (7.0-18.7); Calc. Creatinine Clearance 124 mL/min (70-130); Carbon Dioxide 23 mmol/L (22-29); Chloride 107 mmol/L (98-107); Glucose 83 mg/dL (70-105); Magnesium 1.9 mg/dL (1.6-2.6); Sodium 139 mmol/L (136-145)
[2021-07-19 07:51] LABS: PTT 29.6 sec (22.9-36.1); Prothrombin Time 13.5 sec (12.0-14.7)
[2021-07-19 07:53] LABS: D-Dimer Test 0.72 *mcg/mL (0.27-0.43)
[2021-07-19 07:58] LABS: Cardiac Risk 6.2 (Less than 4.5)
[2021-07-19] MEDS ORDERED: Famotidine 20 MG TAB PO SCH (09:00)
[2021-07-19] MEDS ORDERED: Aspirin 81 mg Enteric Coated Tablet PO SCH (09:00)
[2021-07-19 11:32] LABS: HEX PHOS LA Tube 1 43.5 SEC; HEX PHOS LA Tube 2 40.1 SEC; Hexagonal Phospholipid Neut 3.4 SEC (0-8.0)
[2021-07-19 12:13] LABS: SARS-CoV-2 PCR by NAA DETECTED (NotDetected)
[2021-07-19 19:01] VITALS: BP 95/53; TEMP 99.1
[2021-07-19] MEDS ORDERED: Rosuvastatin 20 MG TAB PO SCH (21:00)
[2021-07-20 18:47] LABS: Cardiolipin IgA Ab 4.5 APL-U/mL (<14 Negative); Cardiolipin IgG Ab 3.4 GPL-U/mL (<10 Negative); EliA APS New Method **** NEW METHOD ****
[2021-07-23 14:27] LABS: Protein C Activity 130 % (78-152)
[2021-07-23 14:28] LABS: Factor VIII Test 166.3 % ACTIVE (56-157)
== END 2021-07-19 20:50 | disposition home or self-care (01) ==
LOC: ERS 18:26 → NEURO 21:59
PROVIDERS: ADMIT Internal Medicine; ATTEND Internal Medicine
DX: U07.1 COVID-19 (principal); R20.0 Anesthesia of skin; R53.1 Weakness; E78.00 Pure hypercholesterolemia, unspecified; K21.9 Gastro-esophageal reflux disease without esophagitis; R07.9 Chest pain, unspecified; I08.1 Rheumatic disorders of both mitral and tricuspid valves; Z79.899 Other long term (current) drug therapy; Z88.6 Allergy status to analgesic agent; Z88.8 Allergy status to other drugs, medicaments and biological substances; Z98.84 Bariatric surgery status
CPT/HCPCS: 36415; 70450; 70551; 71045; 71275; 78451; 80048; 80053; 80061; 83090; 83735; 84443; 84484; 84703; 85025; 85240; 85300; 85303; 85305; 85307; 85379; 85598; 85610; 85730; 86147; 93005; 93306; 93880; A9500; G0378; J3490; M0243; Q0244; U0003; U0005

== ENCOUNTER 2021-07-20 23:04 | Emergency (ER) | payer BC ==
[2021-07-21] MEDS ORDERED: diphenhydrAMINE 12.5 MG/5 ML UDCUP ONE (00:33)
[2021-07-21] MEDS ORDERED: Metoclopramide HCl 10 MG/2 ML VIAL ONE (00:33)
[2021-07-21] MEDS ORDERED: diphenhydrAMINE 50 MG/ML VIAL ONE (00:34)
== END 2021-07-21 01:40 | disposition home or self-care (01) ==
LOC: ERS 23:04
DX: R51.9 Headache, unspecified (principal); R20.2 Paresthesia of skin; E78.00 Pure hypercholesterolemia, unspecified; Z86.73 Personal history of transient ischemic attack (TIA), and cerebral infarction without residual deficits
CPT/HCPCS: 99283; J1200; J2765; Q0163

== ENCOUNTER 2022-06-23 19:25 | Emergency (ER) | payer BC ==
[2022-06-23 20:35] LABS: #Eosinphils 0.1 thou/uL (0.0-0.7); #Lymphocytes 2.1 thou/uL (1.20-3.40); #Monocytes 0.4 thou/uL (0.11-0.59); #Neutrophils 3.7 thou/uL (1.40-6.50); %Basophils 0.3 % (0.0-1.0); %Eosinophils 1.9 % (0.0-10.0); %Monocytes 5.9 % (0.0-10.0); %Neutrophils 58.9 % (42.0-75.0); Hemoglobin 14.4 g/dL (12.0-16.0); Mean Corpuscular HGB CONC 33.3 g/dL (32.0-36.0); Mean Corpuscular Hemoglobin 30.2 pg (27.0-31.0); Mean Corpuscular Volume 90.5 fL (78.0-98.0); Mean Platelet Volume 7.5 fL (7.4-10.4); Platelet Count 218 thou/uL (130-400); RBC Distribution Width 11.6 % (11.5-14.5); Red Blood Cell (RBC) Count 4.77 mill/uL (4.20-5.40); White Blood Cell (WBC) Count 6.3 thou/uL (4.8-10.8)
[2022-06-23 20:50] LABS: BHCG - Serum Negative (NEGATIVE); Pregs Control Background? CLEAR/WHITE (CLR/WHITE); Pregs Control Bar Appear? YES (CONTROL BAR)
[2022-06-23 20:53] LABS: ALT (SGPT) 13 U/L (8-55); AST (SGOT) 17 U/L (5-34); Albumin 4.7 g/dL (3.5-5.0); Alkaline Phosphatase 54 U/L (40-110); Anion Gap 12 mmol/L (10-20); BUN (Urea Nitrogen) 14 mg/dL (7.0-18.7); Bilirubin, Total 0.6 mg/dL (0.2-1.2); Calc. Creatinine Clearance 0 mL/min (70-130); Calcium 9.4 mg/dL (7.8-10.44); Carbon Dioxide 27 mmol/L (22-29); Chloride 103 mmol/L (98-107); Estimated GFR 111; Globulin 3.5 g/dL (2.4-3.5); Glucose 90 mg/dL (70-105); Potassium 4.3 mmol/L (3.5-5.1); Protein, Total 8.2 g/dL (6.0-8.3); Sodium 138 mmol/L (136-145)
[2022-06-23 21:22] LABS: Bilirubin Negative (Negative); Blood, Urine Negative (Negative); Clarity Clear (Clear); Glucose, Urine (Dipstick) Normal (Negative); Ketone, Urine Negative (Negative); Leukocyte Negative Leu/uL (Negative); Nitrite Negative (Negative); Protein, Urine (Dipstick) Negative (Neg-Trace); Urobilinogen 3 mg/dL (Less than 2)
== END 2022-06-23 22:51 | disposition home or self-care (01) ==
LOC: ERS 19:25
DX: R53.81 Other malaise (principal); R53.83 Other fatigue
CPT/HCPCS: 36415; 71045; 80053; 81003; 84443; 84484; 84703; 85025; 87804; 93005

== ENCOUNTER 2025-05-26 14:54 | Outpatient (CLI) | payer BC | END 2025-05-26 14:55 | disposition home or self-care (01) | LOC: BICMAMMO 14:54 | PROVIDERS: ATTEND Family Medicine | DX: Z12.31 Encounter for screening mammogram for malignant neoplasm of breast (principal); Z80.3 Family history of malignant neoplasm of breast | CPT/HCPCS: 77063; 77067 ==